=== PATIENT | male | born 1980 | race Two or more races ===

== ENCOUNTER 2019-11-11 00:03 | Emergency (ER) | payer OTHER ==
[~2019-11-11] VITALS: Ht 182.9 cm; Wt 90.7 kg
--- NOTE | 2019-11-11 00:26 | NUR ---
Patient c/o nonradiating intermitten left side chest wall pain for more than 24hrs. Patient stating "I have alot of stress in the last 2 weeks." Denies SOB,N/V. DR Wright into eval patient.
[2019-11-11 00:57] LABS: CREATININE 1.2 mg/dL (0.6-1.3); POTASSIUM 3.8 mmol/L (3.5-5.1)
--- NOTE | 2019-11-11 01:03 | NUR ---
Dr. Wright at bedside for MSE.
[2019-11-11 01:04] LABS: BASOPHILS % (AUTO) 0.7 % (0.0-2.0); EOSINOPHILS # (AUTO) 0.4 K/uL (0.0-0.7); HEMATOCRIT 40.9 % (36.7-47.1); HEMOGLOBIN 14.4 g/dL (12.5-16.3); LYMPHOCYTES # (AUTO) 3.6 K/uL (20.0-40.0); LYMPHOCYTES % (AUTO) 51.9 % (20.5-51.5); MEAN CORPUSCULAR HEMOGLOBIN 30.7 uug (23.8-33.4); MEAN CORPUSCULAR HGB CONC 35 g/dL (32.5-36.3); MONOCYTES # (AUTO) 0.5 K/uL (2.0-10.0); NEUTROPHILS # (AUTO) 2.5 K/uL (1.8-8.9); NEUTROPHILS % (AUTO) 35.4 % (38.5-71.5); PLATELET COUNT (AUTO) 200 K/uL (152-348); WHITE BLOOD COUNT (AUTO) 6.9 K/uL (3.6-10.2)
[2019-11-11 01:06] LABS: BILIRUBIN,DIRECT 0.1 mg/dL (0.0-0.2); BILIRUBIN,TOTAL 0.4 mg/dL (0.2-1.0); TOTAL PROTEIN, SERUM 7.5 g/dL (6.4-8.2)
--- NOTE | 2019-11-11 02:32 | NUR ---
Dr. Wright at bedside for MSE.
[2019-11-11 04:41] VITALS: BP 119/91
--- NOTE | 2019-11-11 04:41 | NUR ---
Patient discharged to home in stable condition. Written and verbal after care instructions given. Patient verbalizes understanding of instructions. Stressed follow up or return to ER for worsening s/s. Pt ambulated out of the ER with steady gait. All belongings with pt.
== END 2019-11-11 04:41 | disposition home or self-care (01) ==
LOC: ER 00:10
DX: R07.9 Chest pain, unspecified (principal); R94.5 Abnormal results of liver function studies; Z82.49 Family history of ischemic heart disease and other diseases of the circulatory system; Z84.1 Family history of disorders of kidney and ureter; E78.5 Hyperlipidemia, unspecified; K76.0 Fatty (change of) liver, not elsewhere classified; R03.0 Elevated blood-pressure reading, without diagnosis of hypertension
CPT/HCPCS: 36415; 70030-TC; 71045; 85025; 85730; 93005; A4663

== ENCOUNTER 2023-09-05 21:03 | Emergency (ER) | payer OTHER ==
[~2023-09-05] VITALS: Ht 188 cm; Wt 98.0 kg
[2023-09-05 22:32] VITALS: BP 130/79; TEMP 98.6; O2SAT 96
== END 2023-09-05 22:32 | disposition home or self-care (01) ==
LOC: ER 21:06
DX: S20.212A Contusion of left front wall of thorax, initial encounter (principal); E78.5 Hyperlipidemia, unspecified; X50.1XXA Overexertion from prolonged static or awkward postures, initial encounter; Y93.89 Activity, other specified; Y92.89 Other specified places as the place of occurrence of the external cause; Y99.8 Other external cause status
CPT/HCPCS: 71045; 93005; A4606; A4663